=== PATIENT | female | born 1970 | race Hispanic/Latino ===

== ENCOUNTER 2021-08-31 18:00 | Emergency (ER) | payer OTHER, BC ==
[~2021-08-31] VITALS: Ht 160 cm; Wt 90.0 kg
[~2021-08-31 18:00] MED LIST: LORTAB 7.5 PO
[2021-08-31 20:15] VITALS: BP 160/66
== END 2021-08-31 20:39 | disposition home or self-care (01) | DRG 552 ==
LOC: ED 18:00
DX: S16.1XXA Strain of muscle, fascia and tendon at neck level, initial encounter (principal); S60.222A Contusion of left hand, initial encounter; V49.50XA Passenger injured in collision with unspecified motor vehicles in traffic accident, initial encounter

== ENCOUNTER 2023-10-24 09:09 | Day surgery (SDC) | payer OTHER ==
[~2023-10-24] VITALS: Ht 160 cm; Wt 70.3 kg
[~2023-10-24 09:09] MED LIST changes: +HYDROCHLOROT25 MG PO
[2023-10-24] MEDS ORDERED: LACTATED RINGER'S 1,000 ML IV ONE (09:32)
[2023-10-24 10:39] VITALS: BP 117/72
[2023-10-24] MEDS ORDERED: PROPOFOL 200 MG/20 ML VIAL IV ONE (14:43)
[2023-10-24] MEDS ORDERED: LIDOCAINE HCL 2% 2ML SDV IV ONE (14:43)
== END 2023-10-24 10:27 | disposition home or self-care (01) | DRG 951 ==
LOC: ENDO 09:09
PROVIDERS: ATTEND Internal Medicine Gastroenterology
PROC: 0DBN8ZX Excision of Sigmoid Colon, Via Natural or Artificial Opening Endoscopic, Diagnostic (ICD-10-PCS; principal; 2023-10-24)
DX: Z12.11 Encounter for screening for malignant neoplasm of colon (principal); D12.5 Benign neoplasm of sigmoid colon; K64.8 Other hemorrhoids